=== PATIENT | male | born 1985 | race Caucasian/White ===

== ENCOUNTER 2017-07-03 09:57 | Emergency (ER) | payer OTHER ==
--- NOTE | 2017-07-03 10:57 | XRAY Preliminary Report ---
Exam: XR Finger(s) LT IMPRESSION: 1. Triangular fragment of bone suspicious for fracture fragment adjacent to the distal aspect of the first metacarpal on the oblique image, chronicity uncertain. [facility] SITE ID: [id number]
--- NOTE | 2017-07-03 11:00 | XRAY Report ---
EXAM: LEFT FIRST DIGIT RADIOGRAPHY EXAM DATE: 07/03/2017 10:35 AM. CLINICAL HISTORY: Injury. COMPARISON: None. TECHNIQUE: 3 views. FINDINGS: Cortical deformity at the distal aspect of the first metacarpal. On the oblique projection there is a n abnormal 2 x 3 mm triangular focus of bone at the anterior ulnar margin of the distal first metacar pal. Suspicious for fracture, age indeterminate. No synovial joint space narrowing. No additional bon e or joint abnormality. IMPRESSION: 1. Triangular fragment of bone suspicious for fracture fragment adjacent to the distal aspect of the first metacarpal on the oblique image, chronicity uncertain. [facility] Referring Provider Line: [phone] SITE ID: [id number]
--- NOTE | 2017-07-03 11:53 | ED Physician Documentation ---
History of Present Illness - Stated complaint Stated Complaint: LT THUMB INJURY - Chief complaint Chief Complaint: Ext Problem - Additonal information Additional information: hx from pt 32 AD [place] male fell on L hand yesterday playining football pain to distal 1st MS he is right handed Review of Systems Musculoskeletal: reports: Extremity pain PD PAST MEDICAL HISTORY - Past Medical History Past Medical History: No - Past Surgical History Past Surgical History: No - Present Medications Home Medications: Ambulatory Orders Medication Instructions Recorded Confirmed No Known Home Medications [No 07/03/17 07/03/17 Known Home Medications] - Allergies Allergies/Adverse Reactions: Allergies Allergy/AdvReac Type Severity Reaction Status Date / Time No Known Drug Allergies Allergy Verified 07/03/17 10:06 - Social History Does the pt smoke?: Yes Smoking Status: Current every day smoker - Immunizations Immunizations are current?: Yes PD ED PE NORMAL - Vitals Vital signs reviewed: Yes - Cardiac Cardiac: RRR - Respiratory Respiratory: No respiratory distress, Clear bilaterally - Extremities Extremities: Other (L hand tender and swollen 1st MC faisal distal able to pinch and ABD MSV intact) Results - Vitals Vitals: Vital Signs - 24 hr 07/03/17 07/03/17 10:04 12:20 Temperature 36.8 C 36.5 C Heart Rate 67 66 Respiratory 16 15 Rate Blood Pressure 131/81 H 135/68 H O2 Saturation 98 99 Oxygen O2 Source Room air - Rads (name of study) L thumb Radiology: See rad report (triangular fragment of bone suspicious for fx adj distal 1st MC on oblique) Procedures - Splint (location) L hand Splint applied by: Tech Type of splint: Thumb spica Other: Patient tolerated well, No complications, Neurovascular intact Departure - Departure Disposition: 01 Home, Self Care Clinical Impression: Hand fracture, left Qualifiers: Encounter type: initial encounter Fracture type: closed Qualified Code(s): S62.92XA - Unspecified fracture of left wrist and hand, initial encounter for closed fracture Condition: Good Instructions: ED Fx Hand Closed Follow-Up: SALOME Sullivan [Provider Group] (orthopedics and your flight surgeon for duty status) Comments: There is a small fracture at the base of your thumb This is a very important joint so you must wear the splint and follow up with orthopedics to be sure it heals correctly Ice and elevation to decrease the swelling Motrin and tylenol for the pain Please get your blood pressure rechecked - it was high today Discharge Date/Time: 07/03/17 12:25
[2017-07-03] MEDS: IBUPROFEN 400 MG TABLET PO STA (12:15)
[2017-07-03] MEDS ORDERED: IBUPROFEN 400 MG TABLET PO ONE (12:19)
[2017-07-03 12:21] VITALS: BP 135/68
== END 2017-07-03 12:25 | disposition home or self-care (01) ==
LOC: ED 09:57
DX: S62.92XA Unspecified fracture of left hand, initial encounter for closed fracture (principal); W19.XXXA Unspecified fall, initial encounter; Y93.61 Activity, american tackle football; R03.0 Elevated blood-pressure reading, without diagnosis of hypertension; F17.200 Nicotine dependence, unspecified, uncomplicated
CPT/HCPCS: 29125; 73140; 99283